=== PATIENT | female | born 2000 | race Two or more races ===

== ENCOUNTER 2023-09-08 10:41 | Inpatient (IN) ==
[2023-09-08 11:57] LABS: Base Excess VBG -11.4 mEq/L; HCO3 VBG 16 mmol/L; Oxygen Saturation VBG 69.7 %; PCO2 VBG 38 mmHg (38-50); PO2 VBG 43 mmHg; pH VBG 7.22 (7.36-7.41)
--- NOTE | 2023-09-08 12:00 | Emergency Department Note ---
Impression & Plan DKA (diabetic ketoacidosis), Type 1 diabetes mellitus, Acute dehydration, Vomiting ED Provider Note NAME: DENNIS OCASIO AGE: 23 SEX: F : 2000 ARRIVES VIA: Walk-In INFORMANT: [Patient][, ] ED PROVIDER(S): [Tip Cristina MD] CHIEF COMPLAINT: Elevated blood sugar MEDICAL DECISION MAKING: Patient does have a normal white count H&H and platelet count but the patient does have a VBG pH is 0.2 and a repeat showed 7.1. The patient's kidney function is unremarkable but the patient does have an elevated anion gap and lower bicarb consistent with DKA. Urinalysis does show glucose and ketones. Patient was ordered a insulin drip and I did speak with the on-call hospitalist Dr. Cortes and the patient was admitted to the medicine service. Patient may have had an increase given her recent steroid administration. Critical Care: I have personally spent 424 minutes of critical care time in direct management of this patient. This includes bedside care, interpretation of diagnostic studies, and testing, discussion with consultants, patient, and family members, and other require inpatient management activities. This2] minutes is in excess of all separately billable procedures. Discussion w/ other healthcare providers: Dr. Cortes inpatient medicine service Prior /Outside records reviewed: I did review a diabetes visit from Mati Sawyer from November 2021. Patient was seen for type 1 diabetes. Patient did have a visit with the need for new insulin pump. Differential diagnosis: Infection, dehydration, metabolic abnormality, hypo/hyperglycemia, electrolyte imbalance, anemia, UTI, pneumonia, thyroid dysfunction among others were considered. Diagnostics, as interpreted by me: ECG: [none] Cardiac monitoring: An order was placed for continuous cardiac monitoring. The monitor shows a rate of 85 with sinus rhythm. [Patient was placed on pulse oximetry] Medical decision rules: [none] Imaging studies: None [] HPI: Patient presents due to concern for elevated blood sugar. The patient is a known type I diabetic. The patient states that she does have an insulin pump but does do correctional sliding scale as needed. The patient states that her sugar was in the 300s yesterday and then overnight around 3 AM this morning was greater than 500. Patient did have an episode of vomiting upon presenting here to the emergency department. The patient denies any known sick contacts or recent travel no dysuria no cough or fever. Patient was recently seen in the emergency department for an allergic reaction and did require a dose of steroids. Patient denies any falls or trauma. Patient states that she may have been in DKA approximately 1 year ago but otherwise no other acute issues. The patient states that she has been a diabetic since the age of 9. PAST MEDICAL HISTORY: [See Below] PAST SURGICAL HISTORY: [See Below] SOCIAL HISTORY: [See Below] HOME MEDICATIONS: [See Below] ALLERGIES: [See Below] VITALS: [See Below] PHYSICAL EXAMINATION: GENERAL: NAD, non-toxic. Wearing glasses. EYE EXAM: Normal conjunctiva. PERRL, no anisocoria and EOM's grossly intact w/o pain. OROPHARYNX: Moist mucus membranes, grossly normal dentition. NECK: Supple, no nuchal rigidity, no adenopathy, non-tender. No signs of meningismus. FROM of the neck with good chin to chest and neck extension. No stridor. LUNGS: Clear to auscultation. Normal chest wall mechanics. HEART: NSR, no MRG. ABDOMEN: Abdomen soft, non-tender, no masses, no rebound or guarding. BACK: No CVA TTP. SKIN: No rashes and no bruising. UPPER EXTREMITIES: Upper extremities are grossly normal. LOWER EXTREMITIES: Grossly normal, no edema. NEURO EXAM: A&O x3, cranial nerves II-XII grossly intact, normal speech, moves all 4 extremities. Past Med/Surg History Medical History Type 1 diabetes mellitus Surgical History History of back surgery scoliosis repair Family History Grandfather (Maternal) Diabetes Uncle Diabetes Social History Smoking Status: Former smoker Hx Alcohol Use: No Preferred Language: Bulgarian Feels Safe at Home: Yes Allergies Allergies Allergy/AdvReac Type Severity Reaction Status Date / Time No Known Allergies Allergy Verified 09/01/23 21:31 Home Meds Home Medications Medication Instructions Recorded Confirmed cholecalciferol (vitamin D3) 625 50,000 unit PO WK 12/03/21 09/08/23 mcg (25,000 unit) capsule flash glucose scanning reader 12/03/21 09/01/23 (FreeStyle Lucho 14 Day [place]) insulin aspart U-100 100 unit/mL 0 unit continuous subcutaneous 12/03/21 09/08/23 subcutaneous solution infusion USEASDIRECTD insulin glargine 100 unit/mL (3 8 unit subcut BID PRN PUMP FAILURE 01/26/22 09/08/23 mL) subcutaneous pen (Basaglar KwikPen U-100 Insulin) insulin lispro 100 unit/mL See Rx Instructions subcut 01/26/22 09/08/23 subcutaneous pen (Humalog KwikPen .COMPLEX PRN PUMP FAILURE (U-100) Insulin) Previous Rx's Medication Instructions Recorded blood sugar diagnostic (OneTouch #100 ea 12/03/21 Verio test strips) blood-glucose meter (OneTouch #1 ea 12/03/21 Verio Flex Start kit) glucagon 3 mg/actuation nasal spray 3 mg intranasal .COMPLEX PRN 12/03/21 hypoglycemia #1 ea lancets 33 gauge (OneTouch Delica #100 ea 12/03/21 Lancets) pen needle, diabetic 32 gauge x #200 ea 12/03/21 5/32" (BD Margot 2nd Gen Pen Needle) acetone (urine) test (Ketone Urine #50 ea 12/07/21 Test strips) insulin aspart U-100 100 unit/mL 1 sliding scale dose subcut 08/17/22 (3 mL) subcutaneous pen (Novolog USEASDIRECTD #15 mL FlexPen U-100 Insulin aspart) Results & Data (ED) Vital Signs Vital Signs - 24 hr 09/08/23 11:16 09/08/23 12:52 Temperature 36.7 C Temperature Source Temporal Artery Scan Pulse Rate 105 H 106 H Respiratory Rate 18 Respiratory Effort / Characteristics Non-Labored Respiratory Depth Normal Respiratory Pattern Regular Blood Pressure 110/76 Blood Pressure Mean 87 Blood Pressure Position Sitting Pulse Oximetry 97 Oxygen Delivery Method Room Air Sepsis Recent Fever Within 48 Hours No Sepsis New/Unexplained Change in Mental Status No Sepsis Action Taken by Nursing No Action Required Home Medications Current Medication List: was personally reviewed by me Laboratory Data Attestation: I reviewed the patient's lab results. 09/08/23 11:40 09/08/23 11:40 Lab Results 09/08/23 09/08/23 09/08/23 Range/Units 11:20 11:35 11:40 WBC 8.66 (4.8-10.8) K/ul RBC 5.21 (4.20-5.40) M/uL Hgb 13.9 (12.0-16.0) g/dl Hct 43.1 (37.0-47.0) % MCV 82.7 (80.0-100.0) fL MCH 26.7 (25.0-34.0) pg MCHC 32.3 (32.0-36.0) g/dL RDW Std Deviation 36.5 (36.4-46.3) fL RDW Coeff of [place] 12.1 (11.5-14.5) % Plt Count 310 (130-400) K/uL MPV 11.9 (9.4-12.4) fL Immature Gran % (Auto) 0.2 % Neut % (Auto) 75.9 % Lymph % (Auto) 18.5 % [place] % (Auto) 3.9 % Eos % (Auto) 0.5 % Baso % (Auto) 1.0 % Neut # (Auto) 6.57 H (1.40-6.50) K/uL Lymph # (Auto) 1.60 (1.20-3.40) K/uL [place] # (Auto) 0.34 (0.11-0.59) K/uL Eos # (Auto) 0.04 (0.00-0.50) K/uL Baso # (Auto) 0.09 (0.00-0.20) K/uL Immature Gran # (Auto) 0.02 (0.01-0.20) K/uL VBG pH 7.22 L (7.36-7.41) VBG pCO2 38 (38-50) mmHg VBG pO2 43 mmHg VBG HCO3 16 mmol/L VBG O2 Saturation 69.7 % VBG Base Excess -11.4 mEq/L Sodium 132 L (136-145) mmol/L Potassium 4.2 (3.5-5.1) mmol/L Chloride 97 L (98-107) mmol/L Carbon Dioxide 17 L (21-32) mmol/L Anion Gap 18 H (3-11) BUN 19 (6-23) mg/dl Creatinine 0.77 (0.6-1.2) mg/dl Est Cr Clr Drug Dosing 89.9 ml/min Est GFR ( Amer) 127.0 ml/min Est GFR (Non-Af Amer) 109.6 ml/min BUN/Creatinine Ratio 24.7 H (10-20) Glucose 384 H* (70-99(Fasting)) mg/dl POC Glucose 380 H* (70-99) mg/dl Lactate (0.4-2.0) mmol/L Calcium 10.1 (8.6-10.3) mg/dl Total Bilirubin 0.8 (0.2-1.0) mg/dl AST 15 (13-39) U/L ALT 13 (7-52) U/L Alkaline Phosphatase 92 (34-104) U/L Total Protein 8.2 (6.0-8.3) gm/dl Albumin 4.9 (3.4-5.0) gm/dl Globulin 3.3 (2.5-4.0) gm/dl Albumin/Globulin Ratio 1.5 (0.9-2) Urine Color Urine Appearance (Clear) Urine pH (4.5-7.5) Ur Specific [place] (1.000-1.030) Urine Protein (Negative) Urine Glucose (UA) (Negative) Urine Ketones (Negative) Urine Blood (Negative) Urine Nitrite (Negative) Urine Bilirubin (Negative) Urine Urobilinogen (Negative) Ur Leukocyte Esterase (Negative) Urine WBC (Auto) (0-5) /hpf Urine RBC (Auto) (0-4) /hpf U Hyaline Cast (Auto) (0-5) /lpf U Epithel Cells (Auto) (0-5) /lpf Urine Bacteria (Auto) (Negative) Urine Test (Negative) 09/08/23 09/08/23 09/08/23 Range/Units 12:55 13:00 13:22 WBC (4.8-10.8) K/ul RBC (4.20-5.40) M/uL Hgb (12.0-16.0) g/dl Hct (37.0-47.0) % MCV (80.0-100.0) fL MCH (25.0-34.0) pg MCHC (32.0-36.0) g/dL RDW Std Deviation (36.4-46.3) fL RDW Coeff of [place] (11.5-14.5) % Plt Count (130-400) K/uL MPV (9.4-12.4) fL Immature Gran % (Auto) % Neut % (Auto) % Lymph % (Auto) % [place] % (Auto) % Eos % (Auto) % Baso % (Auto) % Neut # (Auto) (1.40-6.50) K/uL Lymph # (Auto) (1.20-3.40) K/uL [place] # (Auto) (0.11-0.59) K/uL Eos # (Auto) (0.00-0.50) K/uL Baso # (Auto) (0.00-0.20) K/uL Immature Gran # (Auto) (0.01-0.20) K/uL VBG pH 7.14 L (7.36-7.41) VBG pCO2 (38-50) mmHg VBG pO2 mmHg VBG HCO3 mmol/L VBG O2 Saturation % VBG Base Excess mEq/L Sodium (136-145) mmol/L Potassium (3.5-5.1) mmol/L Chloride (98-107) mmol/L Carbon Dioxide (21-32) mmol/L Anion Gap (3-11) BUN (6-23) mg/dl Creatinine (0.6-1.2) mg/dl Est Cr Clr Drug Dosing ml/min Est GFR ( Amer) ml/min Est GFR (Non-Af Amer) ml/min BUN/Creatinine Ratio (10-20) Glucose (70-99(Fasting)) mg/dl POC Glucose 343 H* (70-99) mg/dl Lactate 1.5 (0.4-2.0) mmol/L Calcium (8.6-10.3) mg/dl Total Bilirubin (0.2-1.0) mg/dl AST (13-39) U/L ALT (7-52) U/L Alkaline Phosphatase (34-104) U/L Total Protein (6.0-8.3) gm/dl Albumin (3.4-5.0) gm/dl Globulin (2.5-4.0) gm/dl Albumin/Globulin Ratio (0.9-2) Urine Color Yellow Urine Appearance Clear (Clear) Urine pH 5.0 (4.5-7.5) Ur Specific [place] 1.031 H (1.000-1.030) Urine Protein Negative (Negative) Urine Glucose (UA) 3+ H (Negative) Urine Ketones 4+ H (Negative) Urine Blood 3+ H (Negative) Urine Nitrite Negative (Negative) Urine Bilirubin Negative (Negative) Urine Urobilinogen Negative (Negative) Ur Leukocyte Esterase Negative (Negative) Urine WBC (Auto) 1-5 (0-5) /hpf Urine RBC (Auto) >30 H (0-4) /hpf U Hyaline Cast (Auto) 1-5 (0-5) /lpf U Epithel Cells (Auto) 10-20 H (0-5) /lpf Urine Bacteria (Auto) Negative (Negative) Urine Test Negative (Negative) Administered Medications Sodium Chloride (Nss) 1,000 mls @ 999 mls/hr IV .Q1H1M LISA Stop: 09/08/23 14:45 Last Admin: 09/08/23 12:45 Dose: 999 mls/hr Documented By: BETINA Co-signed By: KATHRYN Discontinued Medications Ondansetron HCl (Ondansetron Inj 2 Mg/Ml 2 Ml Vial) 4 mg IV NOW STA Stop: 09/08/23 12:40 Last Admin: 09/08/23 12:45 Dose: 4 mg Documented By: BETINA Co-signed By: KATHRYN Discharge Plan Visit Data Chief Complaint: Hyperglycemia Stated Complaint: HYPERGLYCEMIA ED Provider: Tip Cristina Discharge Problem: DKA (diabetic ketoacidosis), Type 1 diabetes mellitus, Acute dehydration, Vomiting Forms Stand Alone Forms: [facility] Prescriptions Prescriptions: No Action (DME) Ketone Urine Test Strip See Rx Instructions .Route Qty: 50 2RF Rx Instructions: QID insulin aspart U-100 100 unit/mL solution 0 unit continuous subcutaneous infusion USEASDIRECTD Rx Instructions: via insulin pump cholecalciferol (vitamin D3) 625 mcg (25,000 unit) capsule 50,000 unit PO WK Rx Instructions: TAKES ON MONDAYS. (DME) FreeStyle Lucho 14 Day [place] [facility] See Rx Instructions .ROUTE Rx Instructions: As directed (DME) blood-glucose meter [OneTouch Verio Flex Start] Kit See Rx Instructions .Route Qty: 1 0RF Rx Instructions: As directed (DME) lancets [OneTouch Delica Lancets] 33 gauge misc See Rx Instructions .Route Qty: 100 1RF Rx Instructions: once daily if needed (DME) OneTouch Verio test strips Strip See Rx Instructions .Route Qty: 100 1RF Rx Instructions: Once daily if needed (DME) pen needle, diabetic [BD Margot 2nd Gen Pen Needle] 32 gauge x 5/32" needle See Rx Instructions .Route Qty: 200 2RF Rx Instructions: Before meals and bedtime, 4x daily glucagon 3 mg/actuation spray,non-aerosol 3 mg intranasal .COMPLEX PRN (Reason: hypoglycemia) Qty: 1 0RF Rx Instructions: 3 mg intranasal PRN; insulin lispro [Humalog KwikPen Insulin] 100 unit/mL insulin pen See Rx Instructions subcut .COMPLEX PRN (Reason: PUMP FAILURE) Rx Instructions: As per carb ratio and sliding scale subcut before meals and as needed; TDD 15; In case of pump failure insulin glargine [Basaglar KwikPen U-100 Insulin] 100 unit/mL (3 mL) insulin pen 8 unit subcut BID PRN (Reason: PUMP FAILURE) Rx Instructions: In case of pump failure insulin aspart U-100 [Novolog FlexPen U-100 Insulin] 100 unit/mL (3 mL) insulin pen 1 sliding scale dose subcut USEASDIRECTD Qty: 15 1RF Referrals Referrals: [facility] [Primary Care Provider] - Discharge Problem: DKA (diabetic ketoacidosis) Qualifiers: Diabetes mellitus type: type 1 Diabetes mellitus complication detail: without coma Qualified Code(s): E10.10 - Type 1 diabetes mellitus with ketoacidosis without coma Type 1 diabetes mellitus Qualifiers: Diabetes mellitus complication status: with hyperglycemia Qualified Code(s): E 10.65 - Type 1 diabetes mellitus with hyperglycemia Vomiting Qualifiers: Vomiting type: unspecified Nausea presence: unspecified Qualified Code(s): R 11.10 - Vomiting, unspecified
[2023-09-08 12:02] LABS: Basophils # (auto) 0.09 K/uL (0.00-0.20); Eosinophils # (auto) 0.04 K/uL (0.00-0.50); Eosinophils % (auto) 0.5 %; Hematocrit (blood only) 43.1 % (37.0-47.0); Hemoglobin 13.9 g/dl (12.0-16.0); Immature Granulocytes # (auto) 0.02 K/uL (0.01-0.20); Immature Granulocytes % (auto) 0.2 %; Lymphocytes % (auto) 18.5 %; Mean Corpuscular Hemoglobin 26.7 pg (25.0-34.0); Mean Corpuscular Hgb Conc 32.3 g/dL (32.0-36.0); Mean Corpuscular Volume 82.7 fL (80.0-100.0); Mean Platelet Volume 11.9 fL (9.4-12.4); Monocytes # (auto) 0.34 K/uL (0.11-0.59); Monocytes % (auto) 3.9 %; Neutrophils # (auto) 6.57 K/uL (1.40-6.50); Neutrophils % (auto) 75.9 %; Platelet Count 310 K/uL (130-400); RDW Coefficient of Variation 12.1 % (11.5-14.5); RDW Standard Deviation 36.5 fL (36.4-46.3); Red Blood Count 5.21 M/uL (4.20-5.40); White Blood Count 8.66 K/ul (4.8-10.8)
[2023-09-08 12:30] LABS: Albumin Globulin Ratio 1.5 (0.9-2); Albumin Level 4.9 gm/dl (3.4-5.0); BUN Creatinine Ratio 24.7 (10-20); Bilirubin,Total 0.8 mg/dl (0.2-1.0); Calcium 10.1 mg/dl (8.6-10.3); Creatinine Clr Calc Pharmacy 89.9 ml/min; Est GFR (Non-African American) 109.6 ml/min; Globulin 3.3 gm/dl (2.5-4.0); Potassium 4.2 mmol/L (3.5-5.1); Total Protein 8.2 gm/dl (6.0-8.3)
[2023-09-08] MEDS ORDERED: ONDANSETRON INJ 2 MG/ML 2 ML VIAL IV STA (12:39)
[2023-09-08] MEDS: SODIUM CHLORIDE 0.9% 1,000 ML IV SCH ×2 (12:45→14:11)
[2023-09-08] MEDS ORDERED: PHARMACY GLYCEMIC MGMT CONSULT PRN (12:46)
[2023-09-08] MEDS ORDERED: STAT IV Infusion **Titration per Protocol STA (12:46)
[2023-09-08] MEDS ORDERED: INSULIN REGULAR 250 UNITS in SODIUM CHLORIDE 0.9% 247.5 ML IV SCH (13:00)
[2023-09-08 13:03] LABS: Pregnancy Test, Urine Negative (Negative)
[2023-09-08 13:07] LABS: Appearance Urine Clear (Clear); Bacteria Urine Automated Negative (Negative); Bilirubin Urine Negative (Negative); Blood Urine 3+ (Negative); Color Urine Yellow; Glucose Urine UA 3+ (Negative); Ketones Urine 4+ (Negative); Leukocyte Esterase Urine Negative (Negative); Nitrite Urine Negative (Negative); Protein Urine Negative (Negative); RBC Urine Automated >30 /hpf (0-4); Specific Gravity Urine 1.031 (1.000-1.030); Urobilinogen Urine Negative (Negative)
[2023-09-08] MEDS ORDERED: POTASSIUM CHLORIDE 20 MEQ in PLASMA-LYTE A 1,000 ML IV SCH (13:15)
[2023-09-08] MEDS ORDERED: PLASMA-LYTE A 500 ML IV ONE (13:16)
--- NOTE | 2023-09-08 13:18 | History & Physical Report ---
Date of Service September 08, 2023 Assessment & Plan (1) Type 1 diabetes mellitus: Plan: Type I DKA BSG 500s morning of admission, 340s while in ER Lactate is normal VBG 7.1 // Unclear trigger, did have a dose of dexamethasone 1 week ago but has not had continued dosing and she has no signs of infection on admission We will admit on DKA insulin GTT protocol. Potassium is normal, Plasma-Lyte +20 mEq KCl added to maintenance fluids. Add dextrose once BSG 250 BMP every 4 hours, VBG every 4 hours, mag/Phos every 4 hours Patient is normallyWith a basal rate of 18 units daily, carb ratio 1:10. Patient will pause her own pump with initiation of hospital driven GTT. Can transition back to her pump once DKA resolves History of allergic reaction Unclear trigger, denies any medication allergies or known triggers. Is not on steroids currently No signs of allergic reaction on admission DVT prophylaxis: Low risk, ambulate/SCDs Disposition: PCU for DKA CODE STATUS: Full Diet: May have water only until ready to advance per DKA History of Present Illness Primary Care Provider: [facility] Hyperglycemia of 1 day 500s overnight, would not go down despite giving additional doses through her insulin Dexamethasone last Monday, got 1 dose from an allergic reaction with hives and slight lip swelling with unclear trigger. Was not discharged on any steroids and has not had any steroids in the last 7 days 1 episode of DKA last year, unclear trigger. No complications Normally has an insulin pump basal 18 units daily. Carb ratio 1:10 No fevers, chills, sweats. No pain with urination Reports she feels well, does not feel sick, is not sure what is triggering her high blood sugar 1 episode of nausea and vomiting this morning when the blood sugar was in the 500s, denies abdominal Medical History: Reviewed Medications: Reviewed Surgical History: Reviewed Family history: Reviewed Allergies: Reviewed. had an allergic rxn last Monday with unclear trigger. Hives + some lip swelling Social History: [employer]. Senior at [employer]. No tobacco. no etoh use Code Status: Full Allergies Allergy/AdvReac Type Severity Reaction Status Date / Time No Known Allergies Allergy Verified 09/01/23 21:31 Home Medications Medication Instructions Recorded Confirmed Type blood sugar diagnostic (PluralsightTouch #100 ea 12/03/21 09/01/23 Rx Verio test strips) blood-glucose meter (OneTouch #1 ea 12/03/21 09/01/23 Rx Verio Flex Start kit) cholecalciferol (vitamin D3) 625 50,000 unit PO WK 12/03/21 09/08/23 History mcg (25,000 unit) capsule flash glucose scanning reader 12/03/21 09/01/23 History (FreeStyle Lucho 14 Day [place]) glucagon 3 mg/actuation nasal spray 3 mg intranasal .COMPLEX PRN 12/03/21 09/08/23 Rx hypoglycemia #1 ea insulin aspart U-100 100 unit/mL 0 unit continuous subcutaneous 12/03/21 09/08/23 History subcutaneous solution infusion USEASDIRECTD lancets 33 gauge (OneTouch Delica #100 ea 12/03/21 09/01/23 Rx Lancets) pen needle, diabetic 32 gauge x #200 ea 12/03/21 09/01/23 Rx 5/32" (BD Margot 2nd Gen Pen Needle) acetone (urine) test (Ketone Urine #50 ea 12/07/21 Rx Test strips) insulin glargine 100 unit/mL (3 8 unit subcut BID PRN PUMP FAILURE 01/26/22 09/08/23 History mL) subcutaneous pen (Basaglar KwikPen U-100 Insulin) insulin lispro 100 unit/mL See Rx Instructions subcut 01/26/22 09/08/23 History subcutaneous pen (Humalog KwikPen .COMPLEX PRN PUMP FAILURE (U-100) Insulin) insulin aspart U-100 100 unit/mL 1 sliding scale dose subcut 08/17/22 09/08/23 Rx (3 mL) subcutaneous pen (Novolog USEASDIRECTD #15 mL FlexPen U-100 Insulin aspart) Past Med/Surg History Medical History Type 1 diabetes mellitus Surgical History History of back surgery scoliosis repair Family History Grandfather (Maternal) Diabetes Uncle Diabetes Social History Smoking Status: Former smoker Hx Alcohol Use: No Preferred Language: Zambian Feels Safe at Home: Yes Physical Exam Physical Exam: General: A&Ox3. NAD. Cooperative. HEENT: Atraumatic, normocephalic. Vision and hearing intact. Pupils equal and reactive to Pulm: CTAB A&P. -wheezes, -rales, -rhonchi. Symmetrical chest rise. No increased work of breathing. No respiratory distress. Cardiac: Tachycardic, -mrg. Radial pulses intact and symmetrical. Abdominal: Nontender, nondistended, soft. BS present. Ext: Warm, dry. No edema. Sensation and strength grossly intact without deficit Results & Data Results & Data Vital Signs (Past 12 Hours) Vital Signs Temp Pulse Resp BP Pulse Ox O2 Del Method 09/08/23 12:52 106 H 09/08/23 11:16 36.7 C 105 H 18 110/76 97 Room Air PG Care Time/CCT Total # of Minutes Spent Total Time Spent with Patient: Total time spent is greater than 50% in coordination of care (as documented) at patient's floor/unit and/or counseling patient: Coding Level of Care Code 56427 INT INP/OBS CARE 3/75MIN Diagnoses Type 1 diabetes mellitus E10.9
[2023-09-08 13:50] LABS: BUN Creatinine Ratio 29.5 (10-20); Calcium 7.9 mg/dl (8.6-10.3); Creatinine Clr Calc Pharmacy 113.5 ml/min; Est GFR (African American) 149.1 ml/min; Est GFR (Non-African American) 128.7 ml/min; Magnesium 1.5 mg/dl (1.7-2.4); Phosphorus 3.4 mg/dl (2.5-4.9); Potassium 4.2 mmol/L (3.5-5.1)
[2023-09-08] MEDS: PENDING D5 1/2NS+20mEq KCL IVF SCH ×2 (15:23→16:56)
[2023-09-08] MEDS ORDERED: ACETAMINOPHEN 325 MG TAB PO PRN (16:43)
[2023-09-08] MEDS: INSULIN ASPART PER UNIT CHARGE SC SCH ×2 (16:56→22:31)
[2023-09-08] MEDS: D5W AND 1/2NSS + 20MEQ KCL 20 MEQ/1,000 ML BAG IV SCH (17:13)
[2023-09-08 17:40] LABS: Anion Gap 10 (3-11); Blood Urea Nitrogen 13 mg/dl (6-23); Calcium 7.9 mg/dl (8.6-10.3); Carbon Dioxide 17 mmol/L (21-32); Chloride 108 mmol/L (98-107); Creatinine Clr Calc Pharmacy 120.1 ml/min; Est GFR (African American) > 150.0 ml/min; Est GFR (Non-African American) 130.1 ml/min; Glucose 146 mg/dl (70-99(Fasting)); Magnesium 1.8 mg/dl (1.7-2.4); Phosphorus 2.4 mg/dl (2.5-4.9); Potassium 3.9 mmol/L (3.5-5.1); Sodium 135 mmol/L (136-145)
[2023-09-08 21:28] LABS: Anion Gap 7 (3-11); BUN Creatinine Ratio 15.8 (10-20); Blood Urea Nitrogen 9 mg/dl (6-23); Calcium 8.1 mg/dl (8.6-10.3); Carbon Dioxide 20 mmol/L (21-32); Chloride 109 mmol/L (98-107); Creatinine Clr Calc Pharmacy 124.3 ml/min; Est GFR (African American) > 150.0 ml/min; Est GFR (Non-African American) 131.6 ml/min; Glucose 154 mg/dl (70-99(Fasting)); Magnesium 1.8 mg/dl (1.7-2.4); Phosphorus 2.6 mg/dl (2.5-4.9); Potassium 3.8 mmol/L (3.5-5.1); Sodium 136 mmol/L (136-145)
[2023-09-08] MEDS ORDERED: DEXTROSE 50% 50 ML SYRINGE IV ONE (23:31)
[2023-09-09] MEDS: D5W AND 1/2NSS + 20MEQ KCL 20 MEQ/1,000 ML BAG IV SCH ×2 (01:13→08:49)
[2023-09-09 02:05] LABS: BUN Creatinine Ratio 10.3 (10-20); Calcium 8.1 mg/dl (8.6-10.3); Creatinine Clr Calc Pharmacy 104.2 ml/min; Est GFR (African American) 143.9 ml/min; Est GFR (Non-African American) 124.2 ml/min; Magnesium 1.8 mg/dl (1.7-2.4); Phosphorus 2.8 mg/dl (2.5-4.9); Potassium 4.1 mmol/L (3.5-5.1)
[2023-09-09 06:16] LABS: Anion Gap 4 (3-11); BUN Creatinine Ratio 12.7 (10-20); Blood Urea Nitrogen 7 mg/dl (6-23); Calcium 8.3 mg/dl (8.6-10.3); Carbon Dioxide 23 mmol/L (21-32); Chloride 109 mmol/L (98-107); Creatinine Clr Calc Pharmacy 128.5 ml/min; Est GFR (African American) > 150.0 ml/min; Est GFR (Non-African American) 133.1 ml/min; Glucose 220 mg/dl (70-99(Fasting)); Magnesium 1.8 mg/dl (1.7-2.4); Phosphorus 2.5 mg/dl (2.5-4.9); Potassium 3.8 mmol/L (3.5-5.1); Sodium 136 mmol/L (136-145)
[2023-09-09] MEDS: INSULIN ASPART PER UNIT CHARGE SC SCH ×2 (08:48→11:53)
[2023-09-09 09:24] LABS: Anion Gap 5 (3-11); BUN Creatinine Ratio 10.7 (10-20); Blood Urea Nitrogen 6 mg/dl (6-23); Calcium 8.3 mg/dl (8.6-10.3); Carbon Dioxide 24 mmol/L (21-32); Chloride 107 mmol/L (98-107); Creatinine Clr Calc Pharmacy 126.2 ml/min; Est GFR (African American) > 150.0 ml/min; Est GFR (Non-African American) 132.4 ml/min; Glucose 248 mg/dl (70-99(Fasting)); Magnesium 1.6 mg/dl (1.7-2.4); Phosphorus 3.2 mg/dl (2.5-4.9); Potassium 3.8 mmol/L (3.5-5.1); Sodium 136 mmol/L (136-145)
[2023-09-09] MEDS ORDERED: SODIUM CHLORIDE 0.9% 1,000 ML IV SCH (11:15)
[2023-09-09] MEDS ORDERED: Nursing to Pharmacy Communication SCH (13:15)
[2023-09-09] MEDS ORDERED: GLUCOSE 40% GEL 15 GM TUBE PO PRN (13:30)
[2023-09-09] MEDS ORDERED: DEXTROSE 50% 50 ML SYRINGE IV PRN (13:30)
[2023-09-09] MEDS ORDERED: CARBOHYDRATES FOR HYPOGLYCEMIA PO PRN (13:30)
[2023-09-09] MEDS ORDERED: INSULIN ASPART 100 UNITS/ML VIAL SC PRN (13:30)
[2023-09-09] MEDS ORDERED: GLUCAGON FOR INJ 1 MG VIAL IM PRN (13:30)
[2023-09-09] MEDS ORDERED: GLUCOSE 10 TAB/TUBE PO PRN (13:30)
[2023-09-09 13:35] LABS: Estimated Average Glucose 214 mg/dl; Hemoglobin A1C 9.1 % (4.5-5.6)
[2023-09-09] MEDS: INSULIN, Rapid-Acting PUMP SCH ×2 (14:40→16:45)
[2023-09-09] MEDS ORDERED: PHARMACY GLYCEMIC MGMT CONSULT PRN (18:42)
--- NOTE | 2023-09-09 18:44 | Hospitalist Progress Note ---
Date of Service September 09, 2023 Assessment & Plan (1) Type 1 diabetes mellitus: Plan: Type I DKA Anion gap is closed History of allergic reaction Unclear trigger, denies any medication allergies or known triggers. Is not on steroids currently No signs of allergic reaction on admission DVT prophylaxis: Low risk, ambulate/SCDs Disposition: PCU for DKA CODE STATUS: Full Diet: May have water only until ready to advance per DKA Admission and Anticipated Discharge Date Admission Date: September 08, 2023 Subjective Anion gap is closed, patient started on insulin pump, insulin drip was stopped, patient basal rate increased to 20, completion continue to proceed with bolus (carbohydrate count), we calculate how much extra insulin patient is required and then we divided between the carbohydrate count and basal rate Physical Exam Physical Exam: General: A&Ox3. NAD. Cooperative. HEENT: Atraumatic, normocephalic. Vision and hearing intact. Pupils equal and reactive to Pulm: CTAB A&P. -wheezes, -rales, -rhonchi. Symmetrical chest rise. No increased work of breathing. No respiratory distress. Cardiac: Tachycardic, -mrg. Radial pulses intact and symmetrical. Abdominal: Nontender, nondistended, soft. BS present. Ext: Warm, dry. No edema. Sensation and strength grossly intact without deficit Results & Data Results & Data Vital Signs (Past 12 Hours) Vital Signs Temp Pulse Pulse Resp BP Pulse Ox O2 Del Method 09/09/23 15:53 37.0 C 88 16 112/75 100 Room Air 09/09/23 15:37 91 H 09/09/23 11:48 36.9 C 89 16 99/67 L 98 Room Air 09/09/23 08:15 77 09/09/23 07:35 36.9 C 82 18 103/66 99 Room Air PG Care Time/CCT Total # of Minutes Spent Total Time Spent with Patient: Total time spent is greater than 50% in coordination of care (as documented) at patient's floor/unit and/or counseling patient: Coding Level of Care Code 75995 SUB INP/OBS CARE 2/35MIN Diagnoses Type 1 diabetes mellitus E10.9
[2023-09-09] MEDS ORDERED: INSULIN ASPART PER UNIT CHARGE SC SCH (19:00)
[2023-09-10] MEDS ORDERED: INSULIN ASPART PER UNIT CHARGE SC SCH
--- NOTE | 2023-09-10 06:25 | Communication Note ---
Date of Service: September 10, 2023 Notified by nursing soon after shift change that patient was leaving AMA imminently. Reviewed patient's chart, which showed she just been transitioned f rom IV insulin to SQ. Last serum glucose level in the 140s. Went to bedside to speak to the patient. Explained risks of hyperglycemia, including severe dehydration, coma, and/or . Patient expressed awareness and understanding of this but still wanted to leave. Nurse greg assisted, provided documentation confirming patient chose to leave AMA, which patient signed. Also provided excuse note for school for patient. Resident Activity Tracking Resident Involvement: Resident Care Provided and Hand Ii [employer]ocker Coverage Note Care Provided: Adult Hospital Medicine
--- NOTE | 2023-09-10 19:12 | Discharge Summary ---
Date of Service September 09, 2023 Admission HPI Per Admitting Provider Hyperglycemia of 1 day 500s overnight, would not go down despite giving additional doses through her insulin Dexamethasone last Monday, got 1 dose from an allergic reaction with hives and slight lip swelling with unclear trigger. Was not discharged on any steroids and has not had any steroids in the last 7 days 1 episode of DKA last year, unclear trigger. No complications Normally has an insulin pump basal 18 units daily. Carb ratio 1:10 No fevers, chills, sweats. No pain with urination Reports she feels well, does not feel sick, is not sure what is triggering her high blood sugar 1 episode of nausea and vomiting this morning when the blood sugar was in the 500s, denies abdominal Medical History: Reviewed Medications: Reviewed Surgical History: Reviewed Family history: Reviewed Allergies: Reviewed. had an allergic rxn last Monday with unclear trigger. Hives + some lip swelling Social History: [employer]. Senior at [employer]. No tobacco. no etoh use Code Status: Full Principal Diagnosis Diabetic ketoacidosis Discharge Exam General: A&Ox3. NAD. Cooperative. HEENT: Atraumatic, normocephalic. Vision and hearing intact. Pupils equal and reactive to Pulm: CTAB A&P. -wheezes, -rales, -rhonchi. Symmetrical chest rise. No increased work of breathing. No respiratory distress. Cardiac: Tachycardic, -mrg. Radial pulses intact and symmetrical. Abdominal: Nontender, nondistended, soft. BS present. Ext: Warm, dry. No edema. Sensation and strength grossly intact without deficit Discharge Data Allergies Allergy/AdvReac Type Severity Reaction Status Date / Time No Known Allergies Allergy Verified 09/01/23 21:31 Consultations 09/08/23 13:23 ED Decision to Admit Stat Diabetes Follow up Diabetes Follow-up Needed for HgbA1c >9% Hospital Course (1) Type 1 diabetes mellitus: The patient is a 24-year-old female [place], usually from [place] initially admitted to this facility with DKA, initiated on insulin drip, anion gap was closed, it was unclear what triggered DKA. Patient using insulin pump at home with a basal rate of 18 with bolus with the carbohydrate ratio of 7 to 1 With correction factor, she was started on With a consistent diet, she was asked to resume her insulin pump, her serum glucose fluctuated and increase as much as 300, she was advised to increase the basal rate from 18-20 be monitored for next 24 hours, however she signed AGAINST MEDICAL ADVICE and left the hospital on 09/09/2020 Total Time Total Time Spent Total Time Spent (In Minutes): 45 mins Discharge Plan Discharge Items Patient Disposition: Against Medical Advice Reason For Visit: DKA Activity: Resume your previous activity Non-emergency contact: Primary Care Provider Follow-up/Referrals: [facility] [Primary Care Provider] - Pending Studies at Discharge: No Stand-Alone Forms: My [employer], Work/School Release, Smoking Cessation Medications and DC Order Prescriptions: No Action (DME) Ketone Urine Test Strip See Rx Instructions .Route Qty: 50 2RF Rx Instructions: QID insulin aspart U-100 100 unit/mL solution 0 unit continuous subcutaneous infusion USEASDIRECTD Rx Instructions: via insulin pump cholecalciferol (vitamin D3) 625 mcg (25,000 unit) capsule 50,000 unit PO WK Rx Instructions: TAKES ON MONDAYS. (DME) FreeStyle Lucho 14 Day [place] Misc See Rx Instructions .ROUTE Rx Instructions: As directed (DME) blood-glucose meter [OneTouch Verio Flex Start] Kit See Rx Instructions .Route Qty: 1 0RF Rx Instructions: As directed (DME) lancets [OneTouch Delica Lancets] 33 gauge misc See Rx Instructions .Route Qty: 100 1RF Rx Instructions: once daily if needed (DME) OneTouch Verio test strips Strip See Rx Instructions .Route Qty: 100 1RF Rx Instructions: Once daily if needed (DME) pen needle, diabetic [BD Margot 2nd Gen Pen Needle] 32 gauge x 5/32" needle See Rx Instructions .Route Qty: 200 2RF Rx Instructions: Before meals and bedtime, 4x daily glucagon 3 mg/actuation spray,non-aerosol 3 mg intranasal .COMPLEX PRN (Reason: hypoglycemia) Qty: 1 0RF Rx Instructions: 3 mg intranasal PRN; insulin lispro [Humalog KwikPen Insulin] 100 unit/mL insulin pen See Rx Instructions subcut .COMPLEX PRN (Reason: PUMP FAILURE) Rx Instructions: As per carb ratio and sliding scale subcut before meals and as needed; TDD 15; In case of pump failure insulin glargine [Basaglar KwikPen U-100 Insulin] 100 unit/mL (3 mL) insulin pen 8 unit subcut BID PRN (Reason: PUMP FAILURE) Rx Instructions: In case of pump failure insulin aspart U-100 [Novolog FlexPen U-100 Insulin] 100 unit/mL (3 mL) insulin pen 1 sliding scale dose subcut USEASDIRECTD Qty: 15 1RF Discharge Orders: Left Against Medical Advice (Routine); Ordered 09/09/23 Ordered By: Uche Kiser/Other Patient Handouts: Managing Type 1 Diabetes, Diabetic Ketoacidosis Admission Data Admit Date/Time: 09/08/23 13:38 Attending Provider: Benjie Curtis Admit Provider: Uche Cortes Primary Care Provider: [facility] Other Providers: Uche Cortes Coding Level of Care Code None Diagnoses Type 1 diabetes mellitus E10.9
--- NOTE | 2023-09-10 19:20 | Electrocardiogram Report ---
Test Reason : Blood Pressure : / mmHG Vent. Rate : 099 BPM Atrial Rate : 099 BPM P-R Int : 142 ms QRS Dur : 074 ms QT Int : 352 ms P-R-T Axes : 081 067 039 degrees QTc Int : 451 ms Normal sinus rhythm Normal ECG No previous ECGs available Confirmed by Carmelo Duval ([id number]) on 09/10/2023 7:20:07 PM Referred By: REFERRED SELF Confirmed By:Carmelo Duval
== END 2023-09-09 19:45 | disposition left against medical advice (07) | DRG 639 ==
LOC: ED 10:41 → 2E 13:38 → SUATTDRO 13:38 → 2E 15:37